=== PATIENT | female | born 1985 | race Two or more races ===

== ENCOUNTER 2019-11-08 18:28 | Emergency (ER) | payer MEDICAID ==
[~2019-11-08] VITALS: Ht 157.5 cm; Wt 63.5 kg
[2019-11-08 18:49] VITALS: BP 146/90
== END 2019-11-08 19:26 | disposition home or self-care (01) ==
LOC: ER 18:35
DX: J06.9 Acute upper respiratory infection, unspecified (principal); H66.91 Otitis media, unspecified, right ear; J45.909 Unspecified asthma, uncomplicated

== ENCOUNTER 2022-05-20 20:06 | Emergency (ER) | payer MEDICAID ==
[~2022-05-20] VITALS: Ht 165.1 cm; Wt 72.1 kg
--- NOTE | 2022-05-20 20:59 | NUR ---
BIBFRIEND C/O BODY ACHES SINCE FRIDAY . PT A/OX4. TOLERATING R/A WELL WITH NO SOB. AMB WITH STEADY GAIT.
[2022-05-20] MEDS ORDERED: KETOROLAC TROMETHAMINE INJ 60 MG/2 ML VIAL IM ONE (21:00)
[2022-05-20] MEDS ORDERED: KETOROLAC TROMETHAMINE INJ 30 MG/ML VIAL ONE (21:14)
--- NOTE | 2022-05-20 21:21 | NUR ---
COVID PCR SWAB COLLECTED AND SENT TO LAB
--- NOTE | 2022-05-20 21:26 | NUR ---
PT RETURNED TO ER ROOM [address]
[2022-05-20] MEDS ORDERED: ONDANSETRON 4 MG TAB.RAPDIS ONE (21:52)
[2022-05-20] MEDS ORDERED: ONDANSETRON 4 MG TAB.RAPDIS SL ONE (22:00)
[2022-05-20] MEDS ORDERED: ONDA4TAB5 PO (22:15)
[2022-05-20] MEDS ORDERED: NAPR500T6 PO (22:15)
--- NOTE | 2022-05-20 22:21 | NUR ---
Patient discharged to home in stable condition. RX Written and verbal after care instructions given. Patient verbalizes understanding of instruction. pt ambulatory with a steady gait
[2022-05-20 22:22] VITALS: BP 127/74
== END 2022-05-20 22:22 | disposition home or self-care (01) ==
LOC: ER 20:14
DX: R52 Pain, unspecified (principal); R51.9 Headache, unspecified; Z20.822 Contact with and (suspected) exposure to COVID-19; J45.909 Unspecified asthma, uncomplicated
CPT/HCPCS: 99285; 70450; 71045; 96372; U0003; J1885; Q0162; C9803